=== PATIENT | male | born 1965 | race African-American/Black ===

== ENCOUNTER 2022-01-17 06:36 | Emergency (ER) | payer MEDICAID ==
[~2022-01-17] VITALS: Ht 167.6 cm; Wt 90.7 kg
[2022-01-17 07:00] VITALS: BP 117/69
--- NOTE | 2022-01-17 07:00 | NUR ---
ASSUME PATIENT CARE. PT WAS BIBRA FROM THE STREETS W/ MULTIPLE COMPLAINTS OF LOWER BACK AND ABDOMINAL PAIN, PT WAS SEEN BY ERMD. STABLE VITALS. SLEEPING BUT IS EASILY AROUSABLE. WILL CONTINUE TO MONITOR.
--- NOTE | 2022-01-17 08:10 | NUR ---
PT VERBALIZED HE IS FEELING MUCH BETTER AND WOULD LIKE TO BE DISCHARGED. SEEN AND EVALUATED. PT WAS VERBALLY DISCHARGED IN STABLE CONDITION.
--- NOTE | 2022-01-17 08:41 | NUR ---
Saw patient walk out- [facility]
== END 2022-01-17 08:42 | disposition home or self-care (01) ==
LOC: ER 06:45
DX: R10.9 Unspecified abdominal pain (principal); F17.200 Nicotine dependence, unspecified, uncomplicated; Z98.890 Other specified postprocedural states; Z60.2 Problems related to living alone

== ENCOUNTER 2022-04-27 11:41 | Emergency (ER) | payer MEDICAID ==
[~2022-04-27] VITALS: Ht 167.6 cm; Wt 90.7 kg
--- NOTE | 2022-04-27 11:48 | NUR ---
BIB RA 860 FROM HOME, LEFT FOREARM WOUND GOT WORSE X 3 DAYS. PT DENIES ANY INJURY. WARM ABLNKET PROVIDED FOR COMFORT. AWAITING MD SIMMS.
[2022-04-27] MEDS ORDERED: CLINDAMYCIN 600 MG in IV D5W 100 ML IV ONE (12:30)
--- NOTE | 2022-04-27 12:42 | NUR ---
IV ESTABLIHSED R HAND 20G. LABS DRAWN AND COLLECTED AT BEDSIDE.
[2022-04-27 12:49] LABS: BASOPHILS % (AUTO) 0.4 % (0.0-2.0); EOSINOPHILS % (AUTO) 1.7 % (0.0-6.0); HEMATOCRIT 39 % (39-51); HEMOGLOBIN 13.3 g/dL (13.5-17.5); LYMPHOCYTES # (AUTO) 1.2 K/uL (0.8-4.8); LYMPHOCYTES % (AUTO) 19.6 % (20.0-44.0); MEAN CORPUSCULAR HGB CONC 34 g/dl (31.0-36.0); MEAN CORPUSCULAR VOLUME 94 fL (80-96); MONOCYTES # (AUTO) 0.4 K/uL (0.1-1.30); MONOCYTES % (AUTO) 5.9 % (2.0-12.0); NEUTROPHILS # (AUTO) 4.4 K/uL (1.8-8.9); NEUTROPHILS % (AUTO) 72.4 % (43.0-81.0); PLATELET COUNT (AUTO) 155 K/uL (150-450); RED BLOOD CELL COUNT(AUTO) 4.16 MIL/uL (4.5-6.0)
--- NOTE | 2022-04-27 13:10 | NUR ---
X RAY AT BEDSIDE
[2022-04-27 13:26] LABS: CALCIUM, SERUM 8.8 mg/dL (8.5-10.1); CREATININE 1.2 mg/dL (0.6-1.3); POTASSIUM 3.5 mmol/L (3.5-5.1)
[2022-04-27] MEDS ORDERED: CLIN300C12 PO (14:45)
--- NOTE | 2022-04-27 14:50 | NUR ---
OINMENT APPLIED TO WOUND SITE, DRESSING APPLIED.
[2022-04-27] MEDS ORDERED: BACI/NEOM/POLY B OINT PKT 1 UDPKT PACKET TP ONE (15:00)
--- NOTE | 2022-04-27 15:04 | NUR ---
IV removed. Catheter intact and site benign. Pressure and 4x4 applied to site. No bleeding noted.Patient discharged to home in stable condition. Written and verbal after care instructions given. Patient verbalizes understanding of instruction.
[2022-04-27 15:05] VITALS: BP 123/77
== END 2022-04-27 15:05 | disposition home or self-care (01) ==
LOC: ER 11:42
DX: L03.114 Cellulitis of left upper limb (principal); F17.200 Nicotine dependence, unspecified, uncomplicated; Z60.2 Problems related to living alone; Z79.899 Other long term (current) drug therapy
CPT/HCPCS: 99284; 96365; 73080; 85025; 80048; 36415; J3490; J7060

== ENCOUNTER 2022-05-06 16:25 | Emergency (ER) | payer MEDICAID ==
[~2022-05-06] VITALS: Ht 170.2 cm; Wt 90.7 kg
[~2022-05-06 16:25] MED LIST: CLIN300C12 PO
[2022-05-06 16:37] VITALS: BP 124/75
[2022-05-06] MEDS ORDERED: KETOROLAC TROMETHAMINE INJ 60 MG/2 ML VIAL IM ONE (17:00)
[2022-05-06] MEDS ORDERED: KETOROLAC TROMETHAMINE INJ 30 MG/ML VIAL ONE (17:06)
== END 2022-05-06 18:00 | disposition home or self-care (01) ==
LOC: ER 16:30
DX: M54.50 Low back pain, unspecified (principal); F20.9 Schizophrenia, unspecified; F17.200 Nicotine dependence, unspecified, uncomplicated; Z60.2 Problems related to living alone; Z79.899 Other long term (current) drug therapy
CPT/HCPCS: 99283; 96372; 72100; J1885

== ENCOUNTER 2022-05-10 16:22 | Emergency (ER) | payer MEDICAID ==
[~2022-05-10] VITALS: Ht 167.6 cm; Wt 85.7 kg
[2022-05-10 16:42] VITALS: BP 135/65
--- NOTE | 2022-05-10 18:00 | NUR ---
CALLED TO ROOM-IN,NO ANSWER
--- NOTE | 2022-05-10 18:30 | NUR ---
CALLED TO ROOM IN,NO ANSWER
--- NOTE | 2022-05-10 19:03 | NUR ---
CALLED TO ROOM IN,NO ANSWER
== END 2022-05-10 19:07 | disposition left against medical advice (07) ==
LOC: ER 18:26
DX: Z53.21 Procedure and treatment not carried out due to patient leaving prior to being seen by health care provider (principal); R53.1 Weakness

== ENCOUNTER 2022-07-22 16:03 | Emergency (ER) | payer MEDICAID ==
[~2022-07-22] VITALS: Ht 167.6 cm; Wt 89.4 kg
[2022-07-22 16:45] VITALS: BP 134/82
--- NOTE | 2022-07-22 16:45 | NUR ---
[id number] [facility] C/O DIZZINESS, BODYACHE THE WHOLE DAY
--- NOTE | 2022-07-22 16:46 | NUR ---
BG [employer]
--- NOTE | 2022-07-22 17:38 | NUR ---
DR SCHRADER AT BEDSIDE FOR EVAL.
[2022-07-22] MEDS ORDERED: MECLIZINE HCL 25 MG TABLET PO ONE (18:00)
--- NOTE | 2022-07-22 18:02 | NUR ---
IV LINE STARTED BLOOD DRAWN AND SENT TO LAB. LAC 20G.
[2022-07-22 18:12] LABS: BASOPHILS % (AUTO) 0.1 % (0.0-2.0); EOSINOPHILS % (AUTO) 1.2 % (0.0-6.0); HEMATOCRIT 41 % (39-51); HEMOGLOBIN 13.3 g/dL (13.5-17.5); LYMPHOCYTES # (AUTO) 0.7 K/uL (0.8-4.8); LYMPHOCYTES % (AUTO) 15.2 % (20.0-44.0); MEAN CORPUSCULAR HGB CONC 33 g/dl (31.0-36.0); MEAN CORPUSCULAR VOLUME 94 fL (80-96); MONOCYTES # (AUTO) 0.6 K/uL (0.1-1.30); MONOCYTES % (AUTO) 13.4 % (2.0-12.0); NEUTROPHILS # (AUTO) 3.1 K/uL (1.8-8.9); NEUTROPHILS % (AUTO) 70.1 % (43.0-81.0); PLATELET COUNT (AUTO) 131 K/uL (150-450); RED BLOOD CELL COUNT(AUTO) 4.33 MIL/uL (4.5-6.0); WHITE BLOOD COUNT (AUTO) 4.5 K/uL (4.3-11.0)
[2022-07-22] MEDS ORDERED: MECLIZINE HCL 25 MG TABLET ONE (18:25)
[2022-07-22 18:51] LABS: ALANINE AMINOTRANSFERASE 38 U/L (12-78); ALBUMIN 3.7 g/dL (3.4-5.0); ALKALINE PHOSPHATASE 70 U/L (46-116); ASPARTATE AMINOTRANSFERASE 19 U/L (15-37); BILIRUBIN,DIRECT 0.1 mg/dL (0.0-0.2); BILIRUBIN,TOTAL 0.2 mg/dL (0.2-1.0); CALCIUM, SERUM 8.9 mg/dL (8.5-10.1); CARBON DIOXIDE 27 mmol/L (21-32); CHLORIDE 102 mmol/L (98-107); CREATININE 1.4 mg/dL (0.6-1.3); GLUCOSE 90 mg/dL (74-106); LIPASE 120 U/L (73-393); POTASSIUM 3.6 mmol/L (3.5-5.1); SODIUM SERUM 137 mmol/L (136-145); TOTAL PROTEIN, SERUM 7.9 g/dL (6.4-8.2); UREA NITROGEN, BLOOD 10 mg/dL (7-18)
[2022-07-22] MEDS ORDERED: MECL-159 PO (19:17)
--- NOTE | 2022-07-22 19:39 | NUR ---
Patient discharged to home in stable condition. Written and verbal after care instructions given. Patient verbalizes understanding of instruction.
== END 2022-07-22 19:40 | disposition home or self-care (01) ==
LOC: ER 16:50
DX: R42 Dizziness and giddiness (principal); Z60.2 Problems related to living alone; F17.200 Nicotine dependence, unspecified, uncomplicated; Z79.899 Other long term (current) drug therapy; Z98.890 Other specified postprocedural states
CPT/HCPCS: 99285; 70450; 71045; 93005; 85025; 80048; 83690; 80076; 36415; 84484; J8597